=== PATIENT | female | born 1975 | race American Indian/Alaskan Native ===

== ENCOUNTER 2017-03-05 08:26 | Emergency (ER) | payer SELFPAY ==
[2017-03-05 09:31] LABS: Basophils % (Auto) 0.5 % (0.0-1.8); Eosinophils % (Auto) 0.8 % (0.0-4.3); Hematocrit 41.1 % (30.3-42.9); Hemoglobin 13.2 gm/dl (10.1-14.3); Mean Corpuscular HGB Conc 32 % (30-34); Mean Corpuscular Hemoglobin 31 pg (28-32); Mean Corpuscular Volume 95 fl (79-97); Platelet Count 311 K/mm3 (140-440); Red Blood Count 4.32 M/mm3 (3.65-5.03); Red Cell Distribution Width 13.5 % (13.2-15.2); White Blood Count 5.8 K/mm3 (4.5-11.0)
[2017-03-05 09:41] LABS: Anion Gap 16 mmol/L; BUN/Creatinine Ratio 13; Blood Urea Nitrogen 10 mg/dL (7-17); Calcium 8.9 mg/dL (8.4-10.2); Carbon Dioxide 28 mmol/L (22-30); Chloride 97.5 mmol/L (98-107); Glucose 89 mg/dL (65-100); Potassium 3.4 mmol/L (3.6-5.0); Sodium 138 mmol/L (137-145)
[2017-03-05 10:24] LABS: Bacteria,Urine 1+ /HPF (Negative); Bilirubin,Urine NEG (Negative); Blood,Urine NEG (Negative); Ketones,Urine NEG (Negative); Leukocyte Esterase,Urine NEG (Negative); Nitrite,Urine NEG (Negative); Protein,Urine <15 mg/dL mg/dL (Negative); Urobilinogen,Urine < 2.0 mg/dL (<2.0)
--- NOTE | 2017-03-05 10:26 | Emergency Department Report ---
ED General Adult HPI - General Chief complaint: Chest Pain Stated complaint: CHEST PAIN, HEADACHE Time Seen by Provider: 03/05/17 10:25 Source: patient, RN notes reviewed Mode of arrival: Ambulatory Limitations: No Limitations - History of Present Illness Initial comments: This is a 42-year-old female. The patient is previously unknown to this provider. Patient has a past medical history of hypertension and anxiety, and reports a family history of aneurysm. There is no family history of fatal aneurysm that she is aware of. The patient presents to the ER with multiple complaints. Her first complaint is generalized weakness. This is been going on for 4-5 days. She also complains of central chest pain for 4-5 days, which does not radiate to the back , arms or neck. There is no vomiting. There is no diaphoresis. There is no leg pain. There is no leg swelling. No DVT or pulmonary embolus risk factors. No recent aspirin use. No recent cocaine use. Patient also describes throbbing global headache which is been present for a month. The headache is not sudden or thunderclap in nature. Did not reach maximal intensity within an hour. It is not the worse headache of her life. Patient reports chronic and frequent headaches. Patient further reports that she feels "dizzy." She further describes this sensation as "my body is dragging." She also describes nonspecific binocular blurry vision or a few weeks. -: Gradual, days(s) Location: head, neck, chest Severity scale (0 -10): 7 Consistency: intermittent Improves with: none Worsens with: none Associated Symptoms: chest pain, headaches, shortness of breath, weakness - Related Data Previous Rx's Medication Instructions Recorded Last Taken Type Acetaminophen [Tylenol Arthritis] 650 mg PO Q6HR PRN #30 tablet.er 03/05/17 Unknown Rx Amlodipine Besylate [Norvasc] 5 mg PO QDAY #30 tablet 03/05/17 Unknown Rx Aspirin [Aspirin BABY CHEW TAB] 81 mg PO QDAY #30 tab.chew 03/05/17 Unknown Rx Allergies Allergy/AdvReac Type Severity Reaction Status Date / Time No Known Allergies Allergy Unverified 03/05/17 08:31 ED Review of Systems ROS: Stated complaint: CHEST PAIN, HEADACHE Other details as noted in HPI Constitutional: malaise. denies: fever Eyes: denies: eye discharge ENT: other (neck pressure). denies: epistaxis Respiratory: denies: wheezing Cardiovascular: chest pain Gastrointestinal: denies: vomiting Genitourinary: as per HPI Musculoskeletal: as per HPI Skin: as per HPI. denies: lesions Neurological: as per HPI, headache Psychiatric: anxiety ED Past Medical Hx - Past Medical History Previous Medical History?: Yes Hx Hypertension: Yes Additional medical history: anxiety - Surgical History Past Surgical History?: Yes Additional Surgical History: - Social History Smoking Status: Never Smoker Substance Use Type: None - Medications Home Medications: Home Medications Medication Instructions Recorded Confirmed Last Taken Type Acetaminophen [Tylenol Arthritis] 650 mg PO Q6HR PRN #30 tablet.er 03/05/17 Unknown Rx Amlodipine Besylate [Norvasc] 5 mg PO QDAY #30 tablet 03/05/17 Unknown Rx Aspirin [Aspirin BABY CHEW TAB] 81 mg PO QDAY #30 tab.chew 03/05/17 Unknown Rx ED Physical Exam - General Limitations: No Limitations General appearance: alert, in no apparent distress - Head Head exam: Present: atraumatic, normocephalic - Eye Eye exam: Present: normal appearance, PERRL, EOMI, other (visual acuity intact to finger counting, color perception, reading at a close distance). Absent: nystagmus - ENT ENT exam: Present: normal exam, normal orophraynx, mucous membranes moist, normal external ear exam - Neck Neck exam: Present: normal inspection, full ROM. Absent: tenderness, meningismus - Respiratory Respiratory exam: Present: normal lung sounds bilaterally, chest wall tenderness. Absent: respiratory distress, wheezes, rales, rhonchi, stridor - Cardiovascular Cardiovascular Exam: Present: regular rate, normal rhythm, normal heart sounds. Absent: bradycardia, tachycardia, irregular rhythm, systolic murmur, diastolic murmur, rubs, gallop - GI/Abdominal GI/Abdominal exam: Present: soft, normal bowel sounds. Absent: distended, tenderness, guarding, rebound, rigid, pulsatile mass - Extremities Exam Extremities exam: Present: normal inspection, full ROM, normal capillary refill. Absent: pedal edema, joint swelling, calf tenderness - Back Exam Back exam: Present: normal inspection, full ROM. Absent: tenderness, CVA tenderness (R), CVA tenderness (L), muscle spasm, paraspinal tenderness, vertebral tenderness - Neurological Exam Neurological exam: Present: alert, oriented X3, normal gait (normal gait. Tandem gait. Negative Romberg examination. Negative pronator drift. Normal heel to kendrick.), other (Extraocular movements intact. Tongue midline. No facial droop. Facial sensation intact to light touch in the V1, V2, V3 distribution bilaterally. 5 and 5 strength in 4 extremities.. Sensation is intact to light touch in 4 extremities.). Absent: motor sensory deficit - Psychiatric Psychiatric exam: Present: anxious - Skin Skin exam: Present: warm, dry, intact, normal color. Absent: rash ED Course Vital Signs 03/05/17 03/05/17 03/05/17 08:31 09:25 09:26 Temperature 98.5 F 98.2 F Pulse Rate 98 H 85 Respiratory 18 16 16 Rate Blood Pressure 176/111 Blood Pressure 152/90 [Right] O2 Sat by Pulse 99 100 100 Oximetry 03/05/17 13:27 Temperature 97.9 F Pulse Rate 68 Respiratory 16 Rate Blood Pressure Blood Pressure 143/85 [Right] O2 Sat by Pulse 100 Oximetry - Reevaluation(s) Reevaluation #1: 03/05/17 11:50 Differential diagnosis: Migraine headache, tension headache, cluster headache, anxiety, conversion disorder, costochondritis, acute coronary syndrome, pneumonia, hypertension Assessment and plan: 42-year-old female with multiple complaints, NIH score of 0 , low risk by BRIAN score, low risk by heart score, walks with a steady gait, no cerebellar signs, visual acuity intact to direct confrontation grossly bilaterally, including finger counting, color perception, rated at a close distance. Patient seemed to be walking around the ER in no distress. Patient noted to be speaking in a cellular phone multiple times in no distress. No pulmonary embolus or DVT risk factors, low risk by well's criteria, perc negative. EKG morphologically within normal limits 2, troponin negative 2, chest x-ray negative, given family history of aneurysm, we'll obtain CT scan of the brain, including angiogram. However the patient's history is not consistent with ruptured aneurysm or subarachnoid hemorrhage. Case is discussed with cardiology on-call, Clif De Jesus, patient is given the cardiology expedited appointment phone number; [phone]. Patient will be restarted on blood pressure medication, instructed to follow up with cardiology. 03/05/17 11:53 Reevaluation #2: 11/09/17 11:54 Patient has no hypercoagulable risk factors, no risk factors for venous sinus thrombosis, cranial nerves within normal limits as noted on physical examination. Reevaluation #3: 03/05/17 12:40 CT scan of the head and neck with contrast negative for aneurysm. Patient resting comfortably. No distress. Noted to be playing on a cellular phone. Vital signs remain stable. Reevaluation #4: 03/05/17 13:42 Troponin negative 2. Vital signs remain stable. Patient appears comfortable. Walking around in no distress. Patient to be discharged. She is given return precautions, instructions to follow up with outpatient cardiology. ED Medical Decision Making - Lab Data Result diagrams: 03/05/17 09:07 03/05/17 09:07 Vital Signs 03/05/17 03/05/17 03/05/17 08:31 09:25 09:26 Temperature 98.5 F 98.2 F Pulse Rate 98 H 85 Respiratory 18 16 16 Rate Blood Pressure 176/111 Blood Pressure 152/90 [Right] O2 Sat by Pulse 99 100 100 Oximetry Lab Results 03/05/17 03/05/17 03/05/17 Range/Units 09:07 09:07 09:07 WBC 5.8 (4.5-11.0) K/mm3 RBC 4.32 (3.65-5.03) M/mm3 Hgb 13.2 (10.1-14.3) gm/dl Hct 41.1 (30.3-42.9) % MCV 95 (79-97) fl MCH 31 (28-32) pg MCHC 32 (30-34) % RDW 13.5 (13.2-15.2) % Plt Count 311 (140-440) K/mm3 Lymph % (Auto) 22.5 (13.4-35.0) % Wells % (Auto) 10.3 H (0.0-7.3) % Eos % (Auto) 0.8 (0.0-4.3) % Baso % (Auto) 0.5 (0.0-1.8) % Lymph # 1.3 (1.2-5.4) K/mm3 Wells # 0.6 (0.0-0.8) K/mm3 Eos # 0.0 (0.0-0.4) K/mm3 Baso # 0.0 (0.0-0.1) K/mm3 Seg Neutrophils % 65.9 (40.0-70.0) % Seg Neutrophils # 3.8 (1.8-7.7) K/mm3 Sodium 138 (137-145) mmol/L Potassium 3.4 L (3.6-5.0) mmol/L Chloride 97.5 L (98-107) mmol/L Carbon Dioxide 28 (22-30) mmol/L Anion Gap 16 mmol/L BUN 10 (7-17) mg/dL Creatinine 0.8 (0.7-1.2) mg/dL Estimated GFR > 60 ml/min BUN/Creatinine Ratio 13 % Glucose 89 (65-100) mg/dL Calcium 8.9 (8.4-10.2) mg/dL Troponin T < 0.010 (0.00-0.029) ng/mL HCG, Qual Negative (Negative) Urine Color (Yellow) Urine Turbidity (Clear) Urine pH (5.0-7.0) Ur Specific [place] (1.003-1.030) Urine Protein (Negative) mg/dL Urine Glucose (UA) (Negative) mg/dL Urine Ketones (Negative) mg/dL Urine Blood (Negative) Urine Nitrite (Negative) Ur Reducing Substances Urine Bilirubin (Negative) Urine Ictotest Urine Urobilinogen (<2.0) mg/dL Ur Leukocyte Esterase (Negative) Urine WBC (Auto) (0.0-6.0) /HPF Urine RBC (Auto) (0.0-6.0) /HPF U Epithel Cells (Auto) (0-13.0) /HPF Urine Bacteria (Auto) (Negative) /HPF Urine HCG, Qual (Negative) 03/05/17 Range/Units 10:07 WBC (4.5-11.0) K/mm3 RBC (3.65-5.03) M/mm3 Hgb (10.1-14.3) gm/dl Hct (30.3-42.9) % MCV (79-97) fl MCH (28-32) pg MCHC (30-34) % RDW (13.2-15.2) % Plt Count (140-440) K/mm3 Lymph % (Auto) (13.4-35.0) % Wells % (Auto) (0.0-7.3) % Eos % (Auto) (0.0-4.3) % Baso % (Auto) (0.0-1.8) % Lymph # (1.2-5.4) K/mm3 Wells # (0.0-0.8) K/mm3 Eos # (0.0-0.4) K/mm3 Baso # (0.0-0.1) K/mm3 Seg Neutrophils % (40.0-70.0) % Seg Neutrophils # (1.8-7.7) K/mm3 Sodium (137-145) mmol/L Potassium (3.6-5.0) mmol/L Chloride (98-107) mmol/L Carbon Dioxide (22-30) mmol/L Anion Gap mmol/L BUN (7-17) mg/dL Creatinine (0.7-1.2) mg/dL Estimated GFR ml/min BUN/Creatinine Ratio % Glucose (65-100) mg/dL Calcium (8.4-10.2) mg/dL Troponin T (0.00-0.029) ng/mL HCG, Qual (Negative) Urine Color Yellow (Yellow) Urine Turbidity Clear (Clear) Urine pH 7.0 (5.0-7.0) Ur Specific [place] 1.008 (1.003-1.030) Urine Protein <15 mg/dl (Negative) mg/dL Urine Glucose (UA) Neg (Negative) mg/dL Urine Ketones Neg (Negative) mg/dL Urine Blood Neg (Negative) Urine Nitrite Neg (Negative) Ur Reducing Substances Not Reportable Urine Bilirubin Neg (Negative) Urine Ictotest Not Reportable Urine Urobilinogen < 2.0 (<2.0) mg/dL Ur Leukocyte Esterase Neg (Negative) Urine WBC (Auto) 6.0 (0.0-6.0) /HPF Urine RBC (Auto) 1.0 (0.0-6.0) /HPF U Epithel Cells (Auto) 5.0 (0-13.0) /HPF Urine Bacteria (Auto) 1+ (Negative) /HPF Urine HCG, Qual Negative (Negative) - EKG Data -: EKG Interpreted by [place] - EKG Data 03/05/17 11:53 EKG #1 demonstrates normal sinus, 96 bpm, normal intervals, normal axis, not morphologically consistent with STEMI, left ventricular voltage, repeat EKG appears unchanged. - Radiology Data Radiology results: report reviewed, image reviewed X-ray the chest is negative. Noncontrast CT scan of the brain is negative. Critical care attestation.: If time is entered above; I have spent that time in minutes in the direct care of this critically ill patient, excluding procedure time. ED Disposition Clinical Impression: Elevated blood pressure reading, Chest pressure Disposition: - TO HOME OR SELFCARE Is pt being admited?: No Does the pt Need Aspirin: No Condition: Stable Instructions: Hypertension (ED) Additional Instructions: Follow-up with a primary care doctor or coding director within the next 3-5 days for elevated chest pressure. Contact cardiology at [phone] to obtain expedited appointment. Take the pain medication as needed/directed. Please note that it is very important to follow-up for your chest pressure and elevated blood pressure. Long-term complications of hypertension and elevated blood pressure includes stroke, heart attack, disability, , paralysis, loss of quality of life. Return to the ER right away with new pain, worsened pain, migration of pain, fevers, chills, lethargy, irritability, projectile vomiting, change in mental status, inability to tolerate liquid feeds. Dr. Taylor is a local primary care doctor. Dr. العراقي is a local 4 h youth development specialist. Prescriptions: Acetaminophen [Tylenol Arthritis] 650 mg PO Q6HR PRN #30 tablet.er PRN Reason: Pain Amlodipine Besylate [Norvasc] 5 mg PO QDAY #30 tablet Aspirin [Aspirin BABY CHEW TAB] 81 mg PO QDAY #30 tab.chew Referrals: PRIMARY MD FRANCESCO [Primary Care Provider] - 3-5 Days LENIN TAYLOR MD [Staff Physician] - 3-5 Days SHAKEEL JENSEN MD [Staff Physician] - 3-5 Days Forms: Work/School Release Form(ED)
[2017-03-05] MEDS ORDERED: NACL 0.9% 250ML 250 ML IV ONE (10:38)
[2017-03-05] MEDS ORDERED: TYLENOL PO ONE (10:38)
--- NOTE | 2017-03-05 11:32 | Cat Scan Report ---
CT HEAD WITHOUT CONTRAST: HISTORY: Headache, dizziness. Serial contiguous axial images were obtained through the cranium. Intravenous contrast material was not administered. The ventricles are normal in size and appearance. There is no mass effect or midline shift. No areas of abnormally increased or decreased attenuation are seen. No mass lesion is seen. The mastoid air cells and visualized portions of the sinuses are normal. IMPRESSION: No acute intracranial process.
--- NOTE | 2017-03-05 11:33 | XRay Report ---
ROUTINE CHEST, TWO VIEWS: HISTORY: chest pain. The trachea, heart, mediastinal contour, lung rosario and bony thorax are unremarkable. IMPRESSION: Unremarkable chest x-ray.
[2017-03-05] MEDS ORDERED: K-DUR PO ONE (11:52)
--- NOTE | 2017-03-05 11:52 | Cat Scan Report ---
CTA HEAD: HISTORY: Headache, dizziness. TECHNIQUE: Helical CT images after IV contrast with 0.625mm reformations. Sagittal and coronal reformats. Rotational MIP images. 3D volume rendering technique. FINDINGS: The arterial structures of the anterior and posterior circulations are patent throughout. No evidence for stenosis, occlusion or aneurysm. IMPRESSION: Unremarkable CTA head.
--- NOTE | 2017-03-05 11:52 | Cat Scan Report ---
CTA NECK: HISTORY: Headache, dizziness. TECHNIQUE: Helical CT following IV contrast. Sagittal and coronal reformatted images. 3D volume rendering technique. Stenosis was calculated using NASCET criteria. FINDINGS: The visualized aortic arch, innominate artery and proximal bilateral subclavian arteries are widely patent with less than 20% stenosis. Within the right carotid system: There is no significant atherosclerotic disease. Less than 20% stenosis. Within the left carotid system: There is no significant atherosclerotic disease. Less than 20% stenosis. The cervical vertebral arteries are patent with less than 20% stenosis. The right vertebral artery is dominant IMPRESSION: Unremarkable CTA of the neck.
[2017-03-05 13:28] VITALS: BP 143/85
== END 2017-03-05 13:35 | disposition home or self-care (01) ==
LOC: ED 08:26
DX: I10 Essential (primary) hypertension (principal); R07.89 Other chest pain; F41.9 Anxiety disorder, unspecified
CPT/HCPCS: 36415; 70450; 70496; 70498; 71020; 80048; 81001; 81025; 84484; 84703; 85025; 93005; 93010; 96360; 99285; J7050; Q9967